=== PATIENT | female | born 1995 ===

== ENCOUNTER → 2016-11-22 | Day surgery (SDC) | payer MEDICAID, OTHER ==
--- NOTE | 2016-11-21 13:24 | PCM.HPANE ---
Patient Data Surgeon Admitting Provider: Attending Provider:Med Miranda MD Primary Care Physician:Medical Clinic,[facility] Other Provider:Kamilla Moseringham Anesthesia Reason for Visit Epigastric Pain Ht/WT & BMI Body Mass Index Allergies Coded Allergies: cefixime (Verified Allergy, Unknown, 11/15/16) ibuprofen (Verified Allergy, Unknown, 11/15/16) Diabetes History Hx Diabetes?: No Medications Reported Medications Ofloxacin 5 Ml Drops5 Ml OT BID 11/15/16 Discontinued Scripts Promethazine Supp 25 Mg Supp25 Mg RECTAL Q8H PRN For Nausea #4 SUPP Ref 0 Prov:Nikolas Caruso MD 12/11/15 Promethazine 25 Mg Gnxwkg31 Mg PO Q4H PRN For Nausea #10 TABLET Ref 0 Prov:Nikolas Caruso MD 12/11/15 Ondansetron ODT 8 Mg Tab.rapdis8 Mg PO Q4H PRN For Nausea #15 TABLET Prov:Nikolas Caruso MD 12/11/15 [Hydrocodone/Acetaminophen] ([place] 5-325)1 TABLET TABLET No Conflict Check1-2 Tablet PO Q4H PRN For Pain #20 TABLET Prov:Benjamin Noyola MD 03/31/15 Ibuprofen 600 Mg Pbllrz501 Mg PO Q6H PRN For Mild Pain #30 TABLET Ref 1 Prov:Benjamin Noyola MD 03/31/15 Docusate Sodium (Colace)100 Mg Yozjtmf646 Mg PO BID #30 CAPSULE Ref 1 Prov:Benjamin Noyola MD 03/31/15 History History of ENT Problems?: No Hx of Heart Problems?: No Cardiovascular History: Denies:: Congestive Heart Failure Hypertension Hx of Respiratory Problem?: No Respiratory History: Denies:: Tuberculosis Hx Neurologic Problems?: No Hx of GI Problems?: Yes Hx of Problems?: No HX of Peritoneal Dialysis: No Female Hx: Positive for:: Currently Hx Musculoskeletal Problems?: No Hx of Psycho/Social Problems?: No Hx Surgeries?: No Hx Any Other Health Problems?: No Hx Diabetes: No Hx Alcohol Use: Yes ( occassionally)Hx Substance Use: Yes (frequent marijuana use) Smoking Status: Current Every Day Smoker Have You Smoked inLast 12 mo: Yes Stop/Bang Risk Assessment Category Category 1A: Patient has history of documented sleep apnea, and HAS NOT received any narcotic, sedative or anesthesia administration during this stay. Category 1B: Patient has history of documented sleep apnea, and HAS received any narcotic , sedative or anesthesia administration during this stay Category 2: Patient has SUSPECTED Obstructive Sleep Apnea, and HAS received any narcotic , sedative or anesthesia administration during this stay. Category 3: Patient has SUSPECTED Obstructive Sleep Apnea and HAS NOT received narcotic, sedative or anesthesia administration during this stay. Category 4: Outpatient in Procedural Areas with known sleep apnea or who screen positive for High Risk via the STOP/BANG questionnaire. Plan Impression Patient chart reviewed, patient interviewed and anesthestic plan with risks, benefits, and alternatives discussed, and informed consent obtained. Tin Turner MD Nov 21, 2016 13:24
[~2016-11-22] MED LIST: Lactated Ringer's 1,000 ML IV ONE; OFLO5DRO9 OT
== END | disposition home or self-care (01) ==
LOC: END 11-18 01:46
PROVIDERS: ATTEND Internal Medicine
DX: R10.13 Epigastric pain (principal); Z53.8 Procedure and treatment not carried out for other reasons